=== PATIENT | female | born 1965 | race Caucasian/White ===

== ENCOUNTER 2017-07-28 14:28 | Emergency (ER) | payer OTHER ==
[2017-07-28 15:31] VITALS: RESP 18; TEMP 99.3; BMI 25.0
--- NOTE | 2017-07-28 15:48 | ED PDOC ---
Arrival/HPI - General Chief Complaint: Back Pain Time Seen by Provider: 07/28/17 14:33 Historian: Patient - History of Present Illness Narrative History of Present Illness (Text): 07/28/17 15:43 Pt is 52 yo F c/o bilateral low back and leg pain for the past 3 weeks. Pt states that she has had this pain that starts in the back and hips and radiates down to the knees for more than 2 months. Pain is intense and aching on bilateral hips especially with pressure and has burning pain down to the knees most of the time. Reports she saw her PMD last Friday and was given Tramadol for the pain. She also takes Aleve at night but does not find too much relief. Denies recent trauma but recalls a fall in [place] 5 years ago when she jammed her back. Denies fever, chills, dysuria, nausea voiting, diarrhea or LOC. Past Medical History - Reproductive Menopause: Yes - Past Medical History Past Medical History: No Previous - Cardiac Hx Cardiac Disorders: No - Pulmonary Hx Respiratory Disorders: No - Neurological Hx Neurological Disorder: No - HEENT Hx HEENT Disorder: No Other/Comment: Patient uses reading glasses - Renal Hx Renal Disorder: No - Endocrine/Metabolic Hx Endocrine Disorders: No - Hematological/Oncological Hx Blood Disorders: Yes Hx Anemia: Yes - Integumentary Hx Dermatological Disorder: No - Musculoskeletal/Rheumatological Hx Musculoskeletal Disorders: Yes (chronic leg cramps and spasms) - Gastrointestinal Hx Gastrointestinal Disorders: Yes Hx Constipation: Yes - Genitourinary/Gynecological Hx Genitourinary Disorders: Yes (caesarean section,ectopic ) - Psychiatric Hx Psychophysiologic Disorder: No Hx Depression: No Hx Emotional Abuse: No Hx Physical Abuse: No Hx Substance Use: No - Surgical History Hx Section: Yes Other/Comment: ectopic - Anesthesia Hx Anesthesia: Yes Hx Anesthesia Reactions: No Hx Malignant Hyperthermia: No - Suicidal Assessment Feels Threatened In Home Enviroment: No Family/Social History Smoking Status: Never Smoked Hx Alcohol Use: No Hx Substance Use: No Hx Substance Use Treatment: No Allergies/Home Meds Allergies/Adverse Reactions: Allergies Penicillins Allergy (Verified 07/28/17 15:13) URTICARIA Home Medications: Home Meds Medication Instructions Recorded Confirmed Tramadol HCl [Ultram] 50 mg PO PRN PRN 07/28/17 07/28/17 Physical Exam Vital Signs Temp Pulse Resp BP Pulse Ox 07/28/17 18:27 61 18 129/70 99 07/28/17 17:45 62 18 130/70 99 07/28/17 15:08 99.3 F 66 18 135/62 98 Temperature: Afebrile Blood Pressure: Normal Pulse: Regular Respiratory Rate: Normal Appearance: Positive for: Well-Appearing, Non-Toxic, Comfortable Pain Distress: None Mental Status: Positive for: Alert and Oriented X 3 - Systems Exam Head: Present: Atraumatic, Normocephalic Pupils: Present: PERRL Extroacular Muscles: Present: EOMI Conjunctiva: Present: Normal Mouth: Present: Moist Mucous Membranes Neck: Present: Normal Range of Motion Respiratory/Chest: Present: Clear to Auscultation, Good Air Exchange. No: Respiratory Distress, Accessory Muscle Use Cardiovascular: Present: Regular Rate and Rhythm, Normal S1, S2. No: Murmurs Abdomen: Present: Normal Bowel Sounds. No: Tenderness, Distention, Peritoneal Signs Back: Present: Normal Inspection. No: CVA Tenderness, Midline Tenderness, Paraspinal Tenderness, Pain with Leg Raise, Decubitus Ulcer, Other Upper Extremity: Present: Normal Inspection, Normal ROM Lower Extremity: Present: Normal Inspection, NORMAL PULSES, Normal ROM, Neurovascularly Intact. No: Edema, CALF TENDERNESS, Cyanosis, Jacy's Sign, Tenderness, Swelling, Erythema, Deformity, Temperature Abnormalties, Capillary Refill < 2 s, Other Neurological: Present: GCS=15, CN II-XII Intact, Speech Normal, Motor Func Grossly Intact (Motor function 5/5 bilateral x 4), Normal Sensory Function, Norm Deep Tendon Reflexes, Gait Normal. No: Normal Cerebellar Funct, Memory Normal, Normal 2Pt Descrimination, Other Skin: Present: Warm, Dry, Normal Color. No: Rashes Psychiatric: Present: Alert, Oriented x 3, Normal Insight, Normal Concentration Medical Decision Making ED Course and Treatment: 07/28/17 17:03 Pt is 52 yo F c/o bilateral low back and leg pain for the past 3 weeks. On exam, pt can ambulate well albeit slow. SLR negative and SILT x 4 bilat, motor function 5/5 bilat x4; point tenderness over bilat hip trochanter. Plan: lumbar XR to r/o fx or dislocation cbc, cmp, UA Pt likely requires MRI to r/o lumbar disc pathology causing radiculopathy; likely has trochanteric bursitis Toradol 15mg IM for pain control Dispo home w meloxicam 7.5 mg qd x 5 days - Lab Interpretations Lab Results: 07/28/17 16:10 07/28/17 16:10 Lab Results 07/28/17 16:10: Sodium 140, Potassium 4.0, Chloride 105, Carbon Dioxide 27, Anion Gap 12, BUN 13, Creatinine 0.7, Est GFR ( Amer) > 60, Est GFR (Non- Af Amer) > 60, Random Glucose 86, Calcium 9.4, Total Bilirubin 0.5, AST 29, ALT 27, Alkaline Phosphatase 81, Total Protein 6.7, Albumin 3.8, Globulin 2.9, Albumin/Globulin Ratio 1.3 07/28/17 16:10: WBC 3.5 L D, RBC 4.37, Hgb 11.9 L, Hct 36.6, MCV 83.8, MCH 27.2 , MCHC 32.5, RDW 14.5, Plt Count 245, MPV 10.6 07/28/17 15:30: Urine Color Yellow, Urine Appearance Clear, Urine pH 6.5, Ur Specific [place] 1.015, Urine Protein Negative, Urine Glucose (UA) Negative, Urine Ketones Negative, Urine Blood Moderate H, Urine Nitrate Negative, Urine Bilirubin Negative, Urine Urobilinogen 0.2, Ur Leukocyte Esterase Negative, Urine RBC 25 - 30, Urine WBC 1 - 3, Ur Epithelial Cells 0 - 2, Urine Bacteria Few - RAD Interpretation Narrative RAD Interpretations (Text): 07/28/17 17:44 Lumbar xr unremarkable Radiology Orders: 07/28/17 15:38 LS SPINE AP/LAT [RAD] Stat Molder Setter: Radiologist Disposition/Present on Arrival - Present on Arrival Any Indicators Present on Arrival: No History of DVT/PE: No History of Uncontrolled Diabetes: No Urinary Catheter: No History of Decub. Ulcer: No History Surgical Site Infection Following: None - Disposition Have Diagnosis and Disposition been Completed?: Yes Diagnosis: UTI (urinary tract infection), Back pain Disposition: HOME/ ROUTINE Disposition Time: 17:48 Patient Plan: Discharge Condition: STABLE Discharge Instructions (ExitCare): Nitrofurantoin Combination (By mouth), Urinary Tract Infection in Women (ED) Additional Instructions: Please take all of the medication you have been prescribed in order to clear the infection you have. Drink plenty of water and see your doctor in the 24-48 hrs. If you experience fevers, chills, severe pain other alarming symptoms, return to the emergency department for reevaluation. Prescriptions: Nitrofurantoin Macrocrystals [Macrobid] 100 mg PO BID 7 Days #14 cap Referrals: Kisha Moore MD [Primary Care Provider] - Follow up with primary Forms: [email or web address] (Serbian)
--- NOTE | 2017-07-28 16:29 | RAD ---
PROCEDURE: Radiographs of the Lumbar Spine. HISTORY: low back pain COMPARISON: No prior. FINDINGS: BONES: Normal alignment. No listhesis. No fracture. DISC SPACES: Unremarkable. OTHER FINDINGS: None. IMPRESSION: Unremarkable radiographs of the lumbar spine.
[2017-07-28 16:40] LABS: PH,URINE 6.5 (4.7-8.0); URINE BILIRUBIN NEGATIVE (NEGATIVE); URINE BLOOD MODERATE (NEGATIVE); URINE GLUCOSE (UA) NEGATIVE (NEGATIVE); URINE LEUKOCYTE ESTERASE NEGATIVE Leu/uL (NEGATIVE); URINE NITRATE NEGATIVE (NEGATIVE); URINE PROTEIN NEGATIVE mg/dL (<30 mg/dL); URINE UROBILINOGEN 0.2 E.U./dL (<1 E.U./dL)
[2017-07-28 16:42] LABS: HEMOGLOBIN 11.9 g/dL (12.0-16.0); MEAN CELL VOLUME 83.8 fl (80.0-105.0); MEAN CORPUSCULAR HEMOGLOBIN 27.2 pg (25.0-35.0); MEAN CORPUSCULAR HGB CONC 32.5 g/dl (31.0-37.0); MEAN PLATELET VOLUME 10.6 fl (7.0-11.0); RBC 4.37 10^6/uL (3.5-6.1); RED CELL DISTRIBUTION WIDTH 14.5 % (11.5-14.5); WHITE BLOOD COUNT 3.5 10^3/ul (4.5-11.0)
[2017-07-28 17:01] LABS: URINE APPEARANCE CLEAR (CLEAR); URINE COLOR YELLOW (YELLOW)
[2017-07-28 17:13] LABS: URINE BACTERIA FEW (NEG); URINE EPITHELIAL CELLS 0 - 2 /hpf (0-5); URINE RBC 25 - 30 /hpf (0-2)
[2017-07-28 17:32] LABS: BLOOD UREA NITROGEN 13 mg/dL (7-21)
[2017-07-28 17:33] LABS: ALB/GLOB RATIO 1.3 (1.1-1.8); ALBUMIN 3.8 g/dL (3.0-4.8); ALT/SGPT 27 U/L (7-56); AST/SGOT 29 U/L (14-36); CALCIUM 9.4 mg/dL (8.4-10.5); GFR AFRICAN-AMERICAN > 60; GFR NON-AFRICAN AMERICAN > 60
[2017-07-28 18:27] VITALS: O2SAT 99
[2017-07-28 18:28] VITALS: BP 129/70; PULSE 61
== END 2017-07-28 18:28 | disposition home or self-care (01) ==
LOC: ED 14:28
DX: N39.0 Urinary tract infection, site not specified (principal); M54.5 Low back pain